=== PATIENT | female | born 1985 | race Caucasian/White ===

== ENCOUNTER 2017-07-26 20:48 | Emergency (ER) | payer MEDICAID, OTHER ==
[~2017-07-26] VITALS: Ht 167.6 cm; Wt 59.0 kg
--- NOTE | 2017-07-26 20:48 | NUR ---
[facility] TO [facility]
[2017-07-26 20:50] VITALS: BP 141/88
[2017-07-26 21:30] VITALS: BP 131/74
--- NOTE | 2017-07-26 21:30 | NUR ---
Patient discharged with v/s stable. Written and verbal after care instructions given and explained. Patient alert, oriented and verbalized understanding of instructions. Police with in custody. All questions addressed prior to discharge. ID band removed. Patient advised to follow up with PMD. Rx of Clindamycin given. Patient educated on indication of medication including possible reaction and side effects. Opportunity to ask questions provided and answered.
== END 2017-07-26 21:30 ==
LOC: MED 20:48
DX: Z02.89 Encounter for other administrative examinations (principal); L02.414 Cutaneous abscess of left upper limb
CPT/HCPCS: 99283